=== PATIENT | female | born 1985 | race American Indian/Alaskan Native ===

== ENCOUNTER 2021-09-24 02:56 | Emergency (ER) | payer OTHER ==
[2021-09-24] MEDS ORDERED: IBUPROFEN 400 MG TAB PO ONE (03:26)
[2021-09-24] MEDS ORDERED: ONDANSETRON 4 MG ODT TAB PO ONE (03:26)
--- NOTE | 2021-09-24 03:34 | Emergency Department Report ---
ED General Adult HPI - General Chief complaint: Chest Pain Stated complaint: Toilet bowl body cleaner is irritating my lung Time Seen by Provider: 09/24/21 03:09 Source: patient, EMS ( EMS documentation not available at time of chart dictation ), RN notes reviewed Mode of arrival: Stretcher Limitations: No Limitations - History of Present Illness Initial comments: The patient was evaluated in the emergency department for symptoms described in the history of present illness. He/she was evaluated in the context of the global COVID-19 pandemic, which necessitated consideration that the patient might be at risk for infection with the virus that causes COVID-19. Institutional protocols and algorithms that pertain to the evaluation of patients at risk for COVID-19 are in a state of rapid change based on information released by regulatory bodies including the CDC and federal and state organizations. These policies and algorithms were followed during the patient's care in the emergency department. Please note that these policies, procedures and recommendations changed on a rapid basis. This is a 36-year-old female, who states that she is not , and indicates that that she has not delivered her given within the past 6 weeks, who presents to the ER today with a complaint of lung irritation after being exposed to cleaning solution. She accidentally breathed in bathroom/toilet bowl body cleaner. She did not swallow or ingested. She reports chest tightness, cough, and back spasms with nausea. Prior to the inhalational exposure, she indicates that she was in her usual state of health -: Sudden, minutes(s) Location: chest, back Quality: aching Consistency: constant Improves with: medication, rest Worsens with: movement - Related Data Previous Rx's Medication Instructions Recorded Last Taken Type Acetaminophen [Non-Aspirin Extra 500 mg PO Q6HR PRN #30 tablet 09/24/21 Unknown Rx Strength] Albuterol Sulfate [Proair 90 mcg IH Q4HR PRN #2 aer.pow.ba 09/24/21 Unknown Rx Respiclick] Ibuprofen [Motrin] 600 mg PO Q8H PRN #30 tablet 09/24/21 Unknown Rx Ondansetron [Zofran Odt] 4 mg PO Q8HR PRN #20 tab.rapdis 09/24/21 Unknown Rx Allergies Allergy/AdvReac Type Severity Reaction Status Date / Time No Known Allergies Allergy Verified 09/24/21 03:16 ED Review of Systems ROS: Stated complaint: KB/HTN Other details as noted in HPI Constitutional: denies: fever Eyes: denies: eye discharge ENT: denies: epistaxis Respiratory: cough. denies: wheezing Cardiovascular: as per HPI Gastrointestinal: denies: abdominal pain Musculoskeletal: back pain Psychiatric: anxiety ED Past Medical Hx - Past Medical History Previous Medical History?: No - Surgical History Past Surgical History?: No - Social History Smoking Status: Never Smoker Substance Use Type: Marijuana, Other - Medications Home Medications: Home Medications Medication Instructions Recorded Confirmed Last Taken Type Acetaminophen [Non-Aspirin Extra 500 mg PO Q6HR PRN #30 tablet 09/24/21 Unknown Rx Strength] Albuterol Sulfate [Proair 90 mcg IH Q4HR PRN #2 aer.pow.ba 09/24/21 Unknown Rx Respiclick] Ibuprofen [Motrin] 600 mg PO Q8H PRN #30 tablet 09/24/21 Unknown Rx Ondansetron [Zofran Odt] 4 mg PO Q8HR PRN #20 tab.rapdis 09/24/21 Unknown Rx ED Physical Exam - General Limitations: No Limitations General appearance: alert, anxious - Head Head exam: Present: atraumatic, normocephalic - Eye Eye exam: Present: normal appearance, EOMI. Absent: nystagmus - ENT ENT exam: Present: normal exam, normal orophraynx, mucous membranes moist, normal external ear exam - Neck Neck exam: Present: normal inspection, full ROM. Absent: tenderness, meningismus - Respiratory Respiratory exam: Present: normal lung sounds bilaterally. Absent: respiratory distress, wheezes, rales, rhonchi, stridor, decreased breath sounds - Cardiovascular Cardiovascular Exam: Present: regular rate, normal rhythm, normal heart sounds. Absent: bradycardia, tachycardia, irregular rhythm, systolic murmur, diastolic murmur, rubs, gallop - GI/Abdominal GI/Abdominal exam: Present: soft. Absent: distended, tenderness, guarding, rebound, rigid, pulsatile mass - Extremities Exam Extremities exam: Present: normal inspection, full ROM, normal capillary refill, other (2+ pulses noted in the bilateral upper and lower extremities. There is no palpable cord. negative Homans sign. Muscular compartments are soft. The pelvis is stable.). Absent: pedal edema, calf tenderness - Back Exam Back exam: Present: normal inspection, paraspinal tenderness. Absent: tenderness, CVA tenderness (R), CVA tenderness (L), muscle spasm - Neurological Exam Neurological exam: Present: alert, oriented X3, other (No facial droop. Tongue midline. Extraocular movements intact bilaterally. Facial sensation intact to light touch in V1, V2, V3 distribution bilaterally. 5 and a 5 strength in 4 extremities. Sensation intact to light touch in 4 extremities.). Absent: motor sensory deficit - Psychiatric Psychiatric exam: Present: anxious - Skin Skin exam: Present: warm, dry, intact, normal color. Absent: rash ED Course Vital Signs 09/24/21 09/24/21 09/24/21 03:05 03:10 03:15 Temperature 98.3 F Pulse Rate 72 77 69 Respiratory 14 15 11 L Rate Blood Pressure 181/112 [Left] O2 Sat by Pulse 99 99 99 Oximetry 09/24/21 03:31 Temperature Pulse Rate 61 Respiratory 12 Rate Blood Pressure [Left] O2 Sat by Pulse 98 Oximetry ED Medical Decision Making - Lab Data Vital Signs 09/24/21 03:10 Temperature 98.3 F Pulse Rate 77 Respiratory 15 Rate Blood Pressure 181/112 [Left] O2 Sat by Pulse 99 Oximetry - EKG Data -: EKG Interpreted by Me EKG shows normal: sinus rhythm Rate: normal - EKG Data When compared to previous EKG there are: previous EKG unavailable 09/24/21 03:56 The EKG is interpreted at 03: 07 Sinus rhythm, rate 67 bpm. Normal axis, normal P wave axis, high left ventricular voltage. There is motion artifact. This is an abnormal EKG. This is not a STEMI. There is no prior for comparison - Radiology Data Radiology results: report reviewed, image reviewed interpreted by me: 2 view x-ray of the chest, interpreted by myself, demonstrate clear lungs, no infiltrate, no pneumothorax, normal osseous anatomy CHEST 2 VIEWS INDICATION / CLINICAL INFORMATION: Chest wall pain and back pain with coughing,. COMPARISON: None available. FINDINGS: SUPPORT DEVICES: None. HEART / MEDIASTINUM: Heart size and mediastinal contour appear within normal limits. LUNGS / PLEURA: No significant pulmonary or pleural abnormality. No pneumothorax. BONES: No significant osseous abnormality. ADDITIONAL FINDINGS: No significant additional findings. IMPRESSION: 1. No active cardiopulmonary disease. Signer Name: Cem Mccrary II, MD Signed: 09/24/2021 3:03 AM Workstation Name: [id number] - Medical Decision Making Differential diagnosis, including but not limited to: Costochondritis, bronchitis, pneumonitis Assessment and plan: 36-year-old female with pulmonary symptoms and muscular pain from coughing and nausea, after exposure to inhalational body cleaner. She is saturating at 99/100% on room air. She is speaking in full sentences. She is not stridulous. Her lung sounds are clear. Her chest x-ray is unremarkable. She is speaking in full sentences. This is most likely transient chemical pneumonitis. She can be discharged with Tylenol, Motrin, antiemetics, and albuterol. Elevated blood pressure reviewed and appreciated, likely secondary to anxiety. Please reference the [employer] clinical policy on asymptomatic hypertension. Critical care attestation.: If time is entered above; I have spent that time in minutes in the direct care of this critically ill patient, excluding procedure time. ED Disposition Clinical Impression: Pneumonitis, Elevated blood pressure reading Disposition: HOME / SELF CARE / HOMELESS Is pt being admited?: No Does the pt Need Aspirin: No Condition: Good Instructions: Pneumonitis Additional Instructions: Patient likely has temporary chemical irritation of the lung tissue. This is likely causing cough with nausea. This is likely why the patient is having chest wall pain and back muscular pain. Avoid exposure to chemicals in the future. If using chemicals in the future, please make sure to have appropriate eye and mouth protection. Take the albuterol as needed for cough and wheezing, pain medication as needed for pain, and nausea medication as needed for nausea and vomiting. Patient is found to have elevated blood pressure today, and is to follow-up with a primary care doctor for recheck in 5 to 7 days. Please return to the emergency room right away with new pain, worsened pain, migration of pain, projectile vomiting, change in mental status, confusion, inability tolerate liquid feeds, new, worsened or different symptoms not present on the initial emergency room evaluation Prescriptions: Ibuprofen [Motrin] 600 mg PO Q8H PRN #30 tablet PRN Reason: Pain Acetaminophen [Non-Aspirin Extra Strength] 500 mg PO Q6HR PRN #30 tablet PRN Reason: Pain , Severe (7-10) Albuterol Sulfate [Proair Respiclick] 90 mcg IH Q4HR PRN #2 aer.pow.ba PRN Reason: Wheezing Ondansetron [Zofran Odt] 4 mg PO Q8HR PRN #20 tab.rapdis PRN Reason: Nausea Referrals: [facility] [Provider Group] - 7-10 days Forms: Work/School Release Form(ED)
--- NOTE | 2021-09-24 04:08 | XRay Report ---
CHEST 2 VIEWS INDICATION / CLINICAL INFORMATION: Chest wall pain and back pain with coughing,. COMPARISON: None available. FINDINGS: SUPPORT DEVICES: None. HEART / MEDIASTINUM: Heart size and mediastinal contour appear within normal limits. LUNGS / PLEURA: No significant pulmonary or pleural abnormality. No pneumothorax. BONES: No significant osseous abnormality. ADDITIONAL FINDINGS: No significant additional findings. IMPRESSION: 1. No active cardiopulmonary disease. Signer Name: Cem Mccrary II, MD Signed: 09/24/2021 4:03 AM Workstation Name: [id number]
[2021-09-24 04:27] VITALS: BP 147/81
--- NOTE | 2021-09-24 13:51 | Electrocardiograph Report ---
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
== END 2021-09-24 04:28 | disposition home or self-care (01) ==
LOC: ED 02:56
DX: J18.9 Pneumonia, unspecified organism (principal); R03.0 Elevated blood-pressure reading, without diagnosis of hypertension; F12.90 Cannabis use, unspecified, uncomplicated
CPT/HCPCS: 71046; 93005; 99283; J3490; Q0162